=== PATIENT | male | born 1975 | race Caucasian/White ===

== ENCOUNTER 2024-11-24 06:00 | Day surgery (SDC) | payer MEDICAID, SELFPAY ==
[2024-11-20 11:03] VITALS: BMI 22.7
--- NOTE | 2024-11-20 11:17 | EKG_ITS ---
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
[2024-11-20 11:23] LABS: Collection Type, Urine Clean Catch; Squamous Epithelial Cell,Urine 0 /hpf (0-5)
[2024-11-20 11:42] LABS: Basophils % (Auto) 1 % (0-2.5); Eosinophils # (Auto) 0.2 Thou/mm3 (0.0-0.5); Eosinophils % (Auto) 3 % (0-10); Hematocrit 47.1 % (41.0-53.0); Hemoglobin 16.3 g/dL (13.5-16.0); Immature Granulocytes % (Auto) 0 % (0-0); Immature Granulocytes Auto 0.02 Thou/mm3 (0.00-0.00); Lymphocytes % (Auto) 25 % (10-50); Mean Corpuscular HGB Conc 34.6 g/dl (31.0-37.0); Mean Corpuscular Volume 90 fL (80-100); Monocytes % (Auto) 13 % (0-12); Neutrophils # (Auto) 4.8 Thou/mm3 (1.8-7.7); Neutrophils % (Auto) 59 % (37-80); Nucleated Red Blood Cell % 0 /100 WBC (0); Platelet Count 314 Thou/mm3 (140-440); RDW Standard Deviation 44.3 fL (35.1-43.9); Red Blood Count 5.26 Miln/mm3 (4.50-5.90)
[2024-11-20 11:46] LABS: Bacteria,Urine Rare; Bilirubin,Urine Negative (Negative); Blood,Urine Negative (Negative); Clarity,Urine Clear (Clear/Hazy); Color,Urine Lt-Yellow (Lt Yel-Yel); Glucose, Urine Negative (Negative); Ketones,Urine Negative (Negative); Leukocyte Esterase,Urine Positive (Negative); Nitrite,Urine Negative (Negative); Protein,Urine Negative (Neg - Trace); RBC,Urine 3 /hpf (0-3); Specific Gravity,Urine 1.015 (1.001-1.035); Urobilinogen,Urine Negative mg/dL (0.0-1.0); WBC,Urine 7 /hpf (0-5)
[2024-11-20 11:58] LABS: Anion Gap 6 (7-16); BUN/Creatinine Ratio 18 Ratio (12-20); Blood Urea Nitrogen 18 mg/dL (9-23); Calcium 9.6 mg/dL (8.3-10.6); Carbon Dioxide 28.2 mMol/L (20.0-31.0); Chloride 105 mMol/L (98-107); Estimated Creatinine Clearance 95.5 mL/min (>60); Glucose 94 mg/dL (74-106); Osmolality,Calculated 279 (275-295); Potassium 4.3 mMol/L (3.4-5.1); Sodium 139 mMol/L (136-145); eGFR > 60 See Note
--- NOTE | 2024-11-23 15:47 | ESHP_ITS ---
RE: ILENE ERVIN : 1975 DATE OF ADMISSION: 11/23/2024 HISTORY OF PRESENT ILLNESS: The patient is a 49-year-old gentleman who was referred to me with a history of scrotal swelling. PAST MEDICAL HISTORY: He has no history of diabetes mellitus. PAST SURGICAL HISTORY: None. HOME MEDICATIONS: He takes anxiety medication. ALLERGIES: NONE KNOWN. SOCIAL HISTORY: He has no children. PHYSICAL EXAMINATION: HEENT: Normal. NECK: Supple. LUNGS: Clear. CARDIOVASCULAR: Heart sounds are normal. ABDOMEN: Soft without any organomegaly. No guarding. No rigidity. GENITOURINARY: Phallus is normal. Testes are down in the scrotum. There is a left-sided scrotal swelling about 3 to 4 inches in size, typically feels like a left scrotal hydrocele. EXTREMITIES: Normal. Elimination test is positive and fluctuation is positive. IMPRESSION: Left scrotal hydrocele. PLAN: The patient is disturbed and bothers about this swelling. He is now scheduled to have left hydrocelectomy. Planned procedure, risks and complications have been discussed with the patient. The patient has understood them and agreed to proceed. DT: 13:43:31 TT: 15:35:00 Ref: [id number] - TID: [id number]
[2024-11-24] VITALS (8 sets, daily range): BP systolic 113–132; BP diastolic 74–86; PULSE 77–88; RESP 12–16; TEMP 36.3–36.7; O2SAT 94–97; BMI 35.4
--- NOTE | 2024-11-24 09:55 | SUR.PHASEI ---
0955: Pt. AAOx4, vitals stable, breathing unlabored, no complaint of pain or nasuea, dressing to groin CDI, jock strap in place, no active bleed noted, report received from MD Clark, Kaylin GODFREY, and Munir HENDRICKSON.
--- NOTE | 2024-11-24 10:55 | SUR.PHASEII ---
1055: Pt. AAOx4, vitals stable, breathing unlabored, no complaint of pain or nausea, dressing to groin CDI, jock strap in place, pt. tolerated sips of water well, pt. ambulated to wheelchair with steady gait and no assist, no complications. Gave discharge instructions to the pt. and his ride, both verbalized understanding and had no further questions. Pt. left with all personal belongings.
--- NOTE | 2024-11-24 11:04 | ESOP_ITS ---
RE: ILENE ERVIN : 1975 DATE OF OPERATION: 11/24/2024 PREOPERATIVE DIAGNOSIS: Large left scrotal hydrocele. POSTOPERATIVE DIAGNOSES: Large left scrotal hydrocele with prominent appendix of the left testis and small left spermatocele. PROCEDURE PERFORMED: Left hydrocelectomy, excision and fulguration of the appendix of the left testis and left spermatocelectomy. ANESTHESIA: General by Dr. Clark. INDICATION: The patient is a 49-year-old male with large 4 inches long left scrotal hydrocele. He was seen in the office. He has been bothered by this. He is now scheduled to have left hydrocelectomy. Planned procedure, risks and complications have been discussed with the patient. The patient understood them and agreed to proceed. DESCRIPTION OF PROCEDURE: After the patient was brought to the operating table under adequate general anesthesia and supine position, parts were prepped and draped in the usual fashion. Left vertical scrotal incision was then made approximately 5 cm long. Skin and subcutaneous tissues were incised. The hydrocele sac was seen and was dissected all from the surrounding structures. Left hydrocele sac was opened. It has a large amount of clear yellow fluid. This was drained. Partial excision of the hydrocele sac was done. Eversion of the sac was done behind the spermatic cord. There was a prominent appendix of the left testis, which was excised and fulgurated. There was a small left scrotal spermatocele, which was also excised. Complete hemostasis was obtained. Left testis was put back into the scrotal sac and the wound was closed in layers with 3-0 chromic catgut sutures. Complete hemostasis was obtained. Local anesthetic was injected at the site of the skin. Sterile dressing was then applied. The patient was then transferred to the recovery room in a satisfactory condition having tolerated the entire procedure well. Sponge count and needle count at the end of the procedure was found to be correct. Estimated blood loss was approximately 10 mL. DT: 10:18:02 TT: 11:02:00 Ref: [id number] - TID: [id number]
== END 2024-11-24 10:55 | disposition home or self-care (01) ==
PROVIDERS: PCP Family Medicine; Referring Provider Surgery; Visit Provider Surgery
PROC: (CPT 55040; principal; 2024-11-24 09:00)
DX: N43.3 Hydrocele, unspecified (principal); N43.41 Spermatocele of epididymis, single; Z01.810 Encounter for preprocedural cardiovascular examination
CPT/HCPCS: 55040; 54840; 36415; 80048; 81001; 85025; 93005; A4217; A4649; J0690; J1100; J2405; J2704; J2765; J3010; J3490; L8330; A9270; J0665

== ENCOUNTER 2024-11-26 19:16 | Emergency (ER) | payer MEDICAID, SELFPAY ==
[2024-11-26 19:17] VITALS: BMI 38.0
[2024-11-26 20:04] VITALS: BP 136/87; PULSE 80; RESP 18; TEMP 36.8; O2SAT 95
[2024-11-26] MEDS: FLUCONAZOLE 150 MG TABLET PO (20:31)
--- NOTE | 2024-11-27 02:23 | PD.EDMALE ---
ED Male Genitalurinary RME/HPI General Chief complaint: Urogenital-Male Stated complaint: POST SX LT TESICAL SWELLING Time Seen by Provider: 11/26/24 20:18 Arrival date/time: 11/26/24 19:16 49M with history of recent testicular surgery by Dr. Chavira presents to ED with some penile discomfort and swelling. Patient denies testicular pain. Patient is taking prescribed Cipro. Patient is urinating and passing gas/stool w/o issue. Limitations: no limitations Related Data Home Medications ?Medication ?Instructions ?Recorded ?Confirmed mirtazapine 45 mg tablet 45 mg PO HS 11/20/24 11/24/24 Previous Rx's ?Medication ?Instructions ?Recorded ciprofloxacin HCl 500 mg tablet 500 mg PO BID #14 tabs 11/24/24 (Cipro) hydrocodone 5 mg-acetaminophen 325 1 tab PO Q6H PRN pain #30 tabs 11/24/24 mg tablet Allergies Allergy/AdvReac Type Severity Reaction Status Date / Time No Known Allergies Allergy Verified 11/24/24 06:54 Review of Systems Review of Systems Systems Reviewed: All systems reviewed, normal except as documented Constitutional Constitutional: Reports system reviewed and no additional complaints, except as documented, Denies fever(s) and Denies headache(s) ENT Ears, Nose, Mouth, and Throat: Denies disequilibrium and Denies headache(s) Cardiovascular Cardiovascular: Reports system reviewed and no additional complaints, except as documented, Denies chest pain and Denies dyspnea Respiratory Respiratory: Reports system reviewed and no additional complaints, except as documented, Denies cough and Denies dyspnea Gastrointestinal Gastrointestinal: Reports system reviewed and no additional complaints, except as documented, Denies abdominal pain, Denies nausea and Denies vomiting Genitourinary Genitourinary: Reports as per HPI, Reports scrotal swelling (genital/testicular swelling) and Reports other Neurologic Neurologic: Reports system reviewed and no additional complaints, except as documented, Denies confusion, Denies disequilibrium and Denies headache(s) Psychiatric Psychiatric: Denies confusion Past Medical History Past Medical History NEUROLOGIC: Negative Neurological Disorders or Seizures CARDIAC: Positive Cardiac Disorders, Hypercholesterolemia and Varicose Veins; Negative Congestive Heart Failure RESPIRATORY: Positive Sleep Apnea (did not want to be tested); Negative Chronic Obstructive Pulmonary Disease (COPD) GASTROINTESTINAL: Positive Gastrointestinal Disorders and Obesity GENITOURINARY: Positive Kidney Stones; Negative Genitourinary Disorders or Renal Disease MUSCULOSKELETAL: Positive Musculoskeletal Disorders and Arthritis ENDOCRINE: Negative Endocrine Disorders, Diabetes Mellitus Type 1 or Diabetes Mellitus Type 2 HEMATOLOGIC: Negative Blood Disorders PSYCHO/SOCIAL: Positive Anxiety OTHER HISTORY: Negative Hospitalization, Autoimmune Disease, Shingles, Blood Transfusions, Blood Transfusion Reaction, Anesthesia Reactions or Cancer Family History FAMILY HISTORY: Positive Family Respiratory Disorders, Family Cardiac Disorders, Family Cancer and Family Surgery; Negative Family Psychiatric Problems, Family Gastrointestinal Problems or Family Anesthesia Reaction Social History SMOKING STATUS: Current every day smoker SUBSTANCE USE: does not use ED Exam General Limitations: Present no limitations General appearance: Present alert and in no apparent distress Head Head exam: Present atraumatic Eye Eye exam: Present normal appearance, PERRL and EOMI ENT ENT exam: Present normal exam, normal oropharynx and mucous membranes moist Neck Neck exam: Present normal inspection, full ROM and trachea midline Chest Chest inspection: Present normal inspection and symmetric chest wall rise Respiratory Respiratory exam: Present normal lung sounds bilaterally Cardiovascular Cardiovascular exam: Present regular rate, normal rhythm and normal heart sounds Abdominal Exam Abdominal exam: Present soft and normal bowel sounds exam: Present scrotal swelling Expanded Exam exam: Present penile swelling (mild) Extremities Exam Extremities exam: Present normal inspection and full ROM Back Exam Back exam: Present normal inspection and full ROM Neurological Exam Neurological exam: Present alert, oriented X3 and CN II-XII intact Psychiatric Psychiatric exam: Present normal affect and normal mood Skin Skin exam: Present warm, dry, intact and normal color Course Quality Measures none Orders Category Date Time Status Fluconazole [Diflucan] Med 11/26/24 20:19 Discontinued 150 mg PO X1 ONE Vital Signs Vital signs: Vital Signs Temperature 98.2 F 11/26/24 20:04 Pulse Rate 80 11/26/24 20:04 Respiratory Rate 18 11/26/24 20:04 Blood Pressure 136/87 H 11/26/24 20:04 Pulse Oximetry (%) 95 11/26/24 20:04 Oxygen Delivery Method Room Air 11/26/24 20:04 O2 at 95% on RA and WNLs Urogenital - Male MDM Narrative MDM Narrative:: 49M with history of recent testicular surgery by Dr. Chavira presents to ED with some penile discomfort and swelling. Patient denies testicular pain. Patient is taking prescribed Cipro. Patient is urinating and passing gas/stool w/o issue. 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 Some redness, but no tenderness. Patient is afebrile, calm, and alert. likely post-surgical swelling. Will give single dose of anti-fungal to cover for possible early balanitis. Patient data External records reviewed:: [facility] previous records Clinical information provided by:: patient Social determinants that could affect healthcare access:: mental health Patient has the following chronic illnesses:: anxiety How is presenting disease/condition affected by chronic disease/condition?: exacerbated by Evaluation data The following diagnostics were reviewed and interpreted by me:: other (specify) (none) Lab and/or radiology exams considered but not ordered:: not ordered Interpretation Summary: n/a Medications / Prescriptions Medications or Prescriptions considered but not ordered:: ordered Medication administrations:: Medication Administration History Discontinued Medications Fluconazole (Fluconazole 150 Mg Tablet) 150 mg PO X1 ONE Stop: 11/26/24 20:20 Last Admin: 11/26/24 20:31 Dose: 150 mg Documented By: above Consultations Consultation(s) initiated? (list below): No Diagnosis Urogenital Male Differential Diagnosis: urinary tract infection, priapism, urethritis, epididymitis, genital herpes simplex, prostatitis, acute retention of urine, inguinal hernia and other (postprocedural complication) Most likely diagnosis given after review of the tests above:: postprocedural complication Admission Indicated Admission indicated?: not indicated Admission Request Was there a request for admission?: No Disposition Plan Disposition Plan: Discharge Discharge Attestation Discharge Attestation: The patient and all family members were given an opportunity to ask questions and understood the discharge instructions. Discharge instructions specifically effects, indications for sooner follow up or return to the emergency department, and the expected course of current diagnosis. Patient condition: Stable Discharge Plan Plan Patient Disposition: HOME (Self Care) Disposition Comment: Stable Prescriptions/Referrals Prescriptions/Med Rec: No Action mirtazapine 45 mg tablet 45 mg PO HS hydrocodone-acetaminophen 5-325 mg tablet 1 tab PO Q6H MDD 4 PRN (Reason: pain) Qty: 30 0RF ciprofloxacin HCl [Cipro] 500 mg tablet 500 mg PO BID Qty: 14 0RF Problem List Clinical Impression: Other postprocedural complications of skin and subcutaneous tissue Patient/Caregiver Discharge Instructions Additional Instructions: Please follow-up with PCP within 24-48 hours and return immediately if symptoms worsen. Make sure to finish ABX and follow-up with surgeon. Print Language: Cuban Stand Alone Forms: Patient Portal Info Letter PA/MANAGER RETIREMENT Supervising Physician PA/MANAGER RETIREMENT Supervising Physician: Dr. Poole
== END 2024-11-26 21:24 | disposition home or self-care (01) ==
LOC: SERX 20:31
PROVIDERS: Emergency Provider Emergency Medicine
DX: L76.82 Other postprocedural complications of skin and subcutaneous tissue (principal); R22.2 Localized swelling, mass and lump, trunk; Y83.8 Other surgical procedures as the cause of abnormal reaction of the patient, or of later complication, without mention of misadventure at the time of the procedure
CPT/HCPCS: 99282; A9270